=== PATIENT | female | born 2000 | race Caucasian/White ===

== ENCOUNTER 2025-02-08 13:17 | Outpatient (OUT) | payer BC, SELFPAY ==
--- NOTE | 2025-02-08 13:57 | XR_ITS ---
[facility] [id number] Patient Name: ANA LUISA DAVISON MRN: [id number] date: 2000 Sex: F Assigned Patient Location: LAB Current Patient Location: LAB Accession/Order Number: [id number] Exam Date: 02/08/2025 14:15 Report Date: 02/08/2025 15:30 At the request of: AFSHIN HANNA Procedure: XR lumbar spine min 4V LUMBAR SPINE - 4 views CLINICAL HISTORY: Low Back Pain COMPARISON: None FINDINGS: Vertebral body disc space heights appear maintained. Facet joints appear unremarkable. SI joints appear unremarkable. XR/XR lumbar spine min 4V IMPRESSION: NO ACUTE BONY PROCESS. Impression dictated by: Lucia Araiza Jr.OAzeem 02/08/2025 3:30 PM Dictation Location: [place] [address] Electronically authenticated by: [id number] Y Date: 02/08/2025 15:30
[2025-02-08 14:17] LABS: Hematocrit 43.5 % (36.0-48.0); Hemoglobin 14.6 g/dL (12.0-16.0); Immature Granulocytes Abs Auto 0.02 10^3/uL (0.00-0.03); Immature Granulocytes Pct Auto 0.4 % (0.0-0.5); Lymphocytes Absolute Auto 1.6 10^3/uL (1.2-3.8); Mean Corpuscular HGB Conc 33.6 g/dL (29.9-35.2); Mean Corpuscular Hemoglobin 31.0 pg (26.7-34.0); Mean Corpuscular Volume 92.4 fL (81.0-99.0); Platelet Count 313 10^3/uL (150-450); Red Blood Count 4.71 10^6/uL (4.20-5.40); White Blood Count 5.5 10^3/uL (4.0-11.0)
[2025-02-08 14:41] LABS: Alanine Aminotransferase 20 U/L (14-59); Albumin Globulin Ratio 1.3; Albumin Level 4.2 g/dL (3.4-5.0); Alkaline Phosphatase 56 U/L (46-116); Anion Gap 12.6; Aspartate Amino Transferase 12 U/L (15-37); Blood Urea Nitrogen 6.0 mg/dL (7.0-18.0); Calcium 8.9 mg/dL (8.5-10.1); Carbon Dioxide 26.1 mmol/L (21.0-32.0); Chloride 104 mmol/L (98-107); Estimated GFR (African America >60 (>=60 mL/min/1.73m^2); Estimated GFR (Non-African Ame >60 (>=60 mL/min/1.73m^2); Globulin 3.2 g/dL; Glucose 93 mg/dL (74-106); Potassium 3.7 mmol/L (3.5-5.1); Sodium 139 mmol/L (136-145); Thyroid Stimulating Hormone 0.838 uIU/mL (0.358-3.740); Total Protein 7.4 g/dL (6.4-8.2)
== END 2025-02-08 13:18 | disposition home or self-care (01) ==
LOC: LAB 13:22
PROVIDERS: PCP Nurse Practitioner; Visit Provider Nurse Practitioner
DX: Z00.00 Encounter for general adult medical examination without abnormal findings (principal); R00.0 Tachycardia, unspecified; M54.50 Low back pain, unspecified
CPT/HCPCS: 36415; 72110; 80053; 84443; 85025